=== PATIENT | female | born 1955 | race Caucasian/White ===

== ENCOUNTER 2023-07-29 10:46 | Outpatient (CLI) | payer MEDICARE, OTHER, SELFPAY ==
--- NOTE | 2023-07-29 08:15 | DI.RAD_ITS ---
Exam(s) XR ANKLE LT COMPLETE EXAM: XR ANKLE LT COMPLETE CLINICAL HISTORY: F/U FRACTURE TECHNIQUE: 2D digital imaging was performed of the left ankle. Three images were obtained. AP, lat eral and oblique views were obtained. COMPARISON: CR XR Ankle 3 Views Min Lt from 07/14/2023 FINDINGS: BONES: There has been no significant change in alignment of the distal left fibular fracture. The fr acture lies 2.3 cm above the level of the ankle mortise. No bony destructive lesion is seen. JOINTS:The ankle mortise is normally aligned. SOFT TISSUE: There is soft tissue swelling about the ankle particularly laterally. IMPRESSION: Stable alignment of the distal fibular fracture. DATA REPOSITORY: RADIATION DOSE DELIVERED:
== END 2023-07-29 10:47 | disposition home or self-care (01) ==
LOC: DIORS 10:46
PROVIDERS: PCP Physician Assistant Medical; Referring Provider Physician Assistant Medical; Visit Provider Student in an Organized Health Care Education/Training Program
DX: S82.832A Other fracture of upper and lower end of left fibula, initial encounter for closed fracture (principal); X58.XXXA Exposure to other specified factors, initial encounter
CPT/HCPCS: 99203; 73610

== ENCOUNTER 2023-09-02 09:47 | Outpatient (CLI) | payer MEDICARE, OTHER, SELFPAY ==
--- NOTE | 2023-09-02 09:09 | DI.RAD_ITS ---
Exam(s) XR ANKLE LT COMPLETE EXAM: XR ANKLE LT COMPLETE CLINICAL HISTORY: F/U FRACTURE. TECHNIQUE: 2D digital imaging was performed. COMPARISON: CR XR ANKLE LT COMPLETE from 07/29/2023 FINDINGS: 3 views The fracture in the distal fibula is again noted, the fracture lines still being visible but without further displacement and there is no widening the ankle mortise. Talar dome unremarkable. There are no obvious degenerative changes in the tibiotalar joint. IMPRESSION: Finding similar to 07/29/2023. Fracture lines in the fibular fracture site are still evident. DATA REPOSITORY: RADIATION DOSE DELIVERED:
== END 2023-09-02 09:48 | disposition home or self-care (01) ==
LOC: DIORS 09:56
PROVIDERS: PCP Physician Assistant Medical; Referring Provider Physician Assistant Medical; Visit Provider Student in an Organized Health Care Education/Training Program
DX: S82.832D Other fracture of upper and lower end of left fibula, subsequent encounter for closed fracture with routine healing (principal); X58.XXXD Exposure to other specified factors, subsequent encounter
CPT/HCPCS: 99213; 73610

== ENCOUNTER 2023-10-21 09:37 | Outpatient (CLI) | payer MEDICARE, OTHER, SELFPAY ==
--- NOTE | 2023-10-21 09:37 | DI.RAD_ITS ---
Exam(s) XR ANKLE LT COMPLETE EXAM: XR ANKLE LT COMPLETE CLINICAL HISTORY: F/U FRACTURE. TECHNIQUE: 2D digital imaging was performed. COMPARISON: No exams were available for comparison FINDINGS: 3 views There is evidence of further healing at the fibular fracture site. Although the fracture line is sti ll visible, there is significant increase in amount of callus at this level. No significant displace ment. No new fractures. No widening of the ankle mortise and the talar dome remains unremarkable in appearance. Small inferior calcaneal spur again noted. IMPRESSION: Further callus formation at the fracture site in the distal fibula. DATA REPOSITORY: RADIATION DOSE DELIVERED:
== END 2023-10-21 09:38 | disposition home or self-care (01) ==
LOC: DIORS 09:38
PROVIDERS: PCP Physician Assistant Medical; Referring Provider Physician Assistant Medical; Visit Provider Student in an Organized Health Care Education/Training Program
DX: S82.832D Other fracture of upper and lower end of left fibula, subsequent encounter for closed fracture with routine healing (principal); X58.XXXD Exposure to other specified factors, subsequent encounter
CPT/HCPCS: 99213; 73610